=== PATIENT | female | born 1940 | race Caucasian/White ===

== ENCOUNTER 2016-06-02 13:52 | Emergency (ER) | payer MEDICARE, OTHER ==
[~2016-06-02] VITALS: Ht 157.5 cm; Wt 100.9 kg
[~2016-06-02 13:52] MED LIST: GLIP5TAB2 PO; IBUP200C PO; INS7030 SUBQ; MULT1CAP33 PO
[2016-06-02 13:58] VITALS: BP 176/76; PULSE 79; RESP 10; O2SAT 100
--- NOTE | 2016-06-02 15:09 | ED.REPORT ---
HPI-Back Pain 40 and Over Date of Service Jun 02, 2016 ED Provider: Dr. Bobo Astudillo M.D. 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 The pain is exacerbated by laying flat and movement but relieved by sitting up. The patient also reports insomnia, muscles spasms in her legs, and generalized muscle cramping. She is incontinent at baseline but denies any changes in this. She also denies fever, leg numbness/weakness, or other symptoms. The patient was seen by her PCP two days ago where she received x- rays of the lumbar spine indicating anterolisthesis from L4-5 and decreased disc space from L5-S1. No fracture or tumor was visualized. She was given a prescription for prednisone and has been taking oxycodone, with no relief. Nursing Notes Stated Complaint: BACK PAIN Chief Complaint: Back Pain or Injury Nursing Notes Reviewed: Yes Allergies: Coded Allergies: Nitrofurantoin Macrocrystal (Verified Allergy, Intermediate, Rash, 08/15/12) Penicillins (Verified Allergy, Intermediate, Hives, 08/15/12) Sulfa (Sulfonamide Antibiotics) (Verified Allergy, Intermediate, rash, 08/15) aluminum hydroxide (Verified Allergy, Intermediate, rash, 08/15/12) magnesium hydroxide (Verified Allergy, Intermediate, rash, 08/15/12) simethicone (Verified Allergy, Intermediate, rash, 08/15/12) Scheduled Glipizide (Glucotrol) 5 Mg Tablet 2.5 MG PO DAILY Insulin Human Isophan/Regular (HUMulin 70/30 U100 Insulin Vial) 100 Unit/Ml Ml 0 SUBQ DAILY slidig scale Multivitamin (Multivitamins) 1 Each Capsule 1 EACH PO DAILY Scheduled PRN Cyclobenzaprine (Cyclobenzaprine) 10 Mg Tablet 10 MG PO TID PRN PRN Spasm Ibuprofen (Ibuprofen) 200 Mg Capsule 200 MG PO QID PRN PRN For Pain General Time Seen by MD: 15:08 Chief Complaint Lumbar pain Hx Obtained From: Patient Arrived By: Walk-in Sudden in Onset?: Yes Onset Occurred: 1 week ago Symptom Duration: Since onset Caused by: Bending Location: : Spinal lumbar area Quality: Painful Severity: Current: Moderate Severity: Maximum: Moderate Associated with: Denies: Fever, Numbness both low ext, Weakness both lower ext Exacerbated by: Movement Related History: Reports: Cancer Recent Healthcare: Recent doctor visit Similar Sx Previous: Yes Past Medical History Past Medical History Diabetes mellitus FIGO stage I endometrial cancer post resection at [facility] in June 2014 Tricuspid regurgitation Peripheral vascular disease Hypertension Hyperlipidemia 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 Reports: Obesity Past Surgical History Endometrial cancer post resection at [facility] in June 2014 Smoking History Unknown if Ever Smoker Social History Alcohol Use: Denies alcohol use Drug Use: Denies drug use Other Social History: Lives with children Ambulatory Status Independent Review of Systems Review of Systems Note: + Muscles spasms in bilateral legs, generalized muscle cramping - Incontinent at baseline Constitutional: Denies: Fever Respiratory: Denies: Non-productive cough, Shortness of breath GI: Denies: Diarrhea, Vomiting Musculoskeletal: Reports: Back pain (Low) Neurologic: Denies: Numbness, Weakness Complete sys rev & neg: except as marked. Psychiatric: Reports: Insomnia Physical Exam Physical Exam Notes: Initial Vital Signs Vital Signs (First) Date Time Temp Pulse Resp B/P Pulse Ox O2 Delivery O2 Flow Rate FiO2 06/02/16 13:58 36.6 79 10 176/76 100 06/02/16 16:08 Room Air Initial VS: Reviewed Head / Eyes: Atraumatic, Normocephalic ENT: Conjunctiva normal, No scleral icterus Skin: Warm, Dry, No cyanosis Psychiatric: Mood/affect normal, Behavior normal, Normal thought content General/Constitutional: Awake, Alert Respiratory / Chest: Breath sounds NL, Breath sounds = bilat, No respiratory distress Cardiovascular: Heart rate NL, Regular rhythm, Heart sounds NL Abdomen: Soft, Non-tender Back: Atraumatic, Inspection NL, Non-tender Neurologic: Oriented X3, Speech NL, No motor deficits, No sensory deficits Dorsiflexion and plantarflexion 5/5 strength bilaterally Neck: Supple, Full range of motion Re-Eval/Medical Decision Source of Hx: Old records Re-Evaluation/Progress : Time of Eval: 15:30 Patient Status: Condition improved Re-Evaluation/Progress Note: Discussed with patient physical exam findings, diagnosis, and plan for discharge. Follow-up and return to the ER instructions given. Patient agrees with plan for care and all questions were addressed. Counseled Regarding: Diagnosis, Need for follow-up, When/why to return to ED Discharge & Departure Impression: Primary Impression: Lumbosacral strain Encounter type: subsequent encounter Qualified Code: S39.012D - Strain of muscle, fascia and tendon of lower back, subsequent encounter Disposition: Home Discharge Condition All VS Reviewed: Yes Condition: Improved Patient Instructions: Low Back Strain (ED) Additional Instructions: Thank you for entrusting us with your care. Please take Cyclobenzaprine as prescribed. If this does not relieve your symptoms, you may add Oxycodone (1 tablet) as prescribed. Do not drink alcohol, drive, or consume acetaminophen while taking Oxycodone. Continue taking the prescribed Prednisone until it is complete. Then, take Advil as directed for pain. Do not take Advil while you are taking Prednisone. Call your primary care provider tomorrow for another follow-up appointment next week. Follow-up right away for increasing incontinence or lower extremity weakness or fever Return to the ER with any new or worsening symptoms. Referrals: Christie Ceja MD (PCP) John Attestation Portions of this note were transcribed by Marline Lisa. I, Dr. Astudillo, personally performed the history, physical exam, and medical decision-making; I reviewed and confirmed the accuracy of the information in the transcribed note. Signed by: John Sorto, 06/02/2016, 16:35 copies to: Christie Ceja MD, Kirk H MD Jun 02, 2016 15:09 MARLINE LISA Jun 02, 2016 15:22
[2016-06-02] MEDS ORDERED: CYCL10TA9 PO (15:39)
[2016-06-02 16:08] VITALS: BP 145/60; PULSE 70; RESP 16; O2SAT 96
[2016-07-05] MEDS ORDERED: OXYC5CAP4 PO (11:32)
[2016-07-05] MEDS ORDERED: IBUP200C11 PO (11:32)
[2016-07-23] MEDS ORDERED: ACET-2561 PO (08:51)
[2016-07-23] MEDS ORDERED: DOCU240C41 PO (08:51)
[2016-08-21] MEDS ORDERED: CHOL200047 PO (16:01)
[2016-08-21] MEDS ORDERED: BISA-67 PO (16:01)
[2016-08-21] MEDS ORDERED: CA C1TAB83 PO (16:01)
== END 2016-06-02 16:10 | disposition home or self-care (01) ==
LOC: SED 13:52
DX: S39.012D Strain of muscle, fascia and tendon of lower back, subsequent encounter (principal); X50.0XXD Overexertion from strenuous movement or load, subsequent encounter; Y93.89 Activity, other specified; Y92.89 Other specified places as the place of occurrence of the external cause; Y99.8 Other external cause status; I10 Essential (primary) hypertension; E78.5 Hyperlipidemia, unspecified; E11.9 Type 2 diabetes mellitus without complications; Z79.4 Long term (current) use of insulin; Z88.0 Allergy status to penicillin; Z88.2 Allergy status to sulfonamides; Z88.8 Allergy status to other drugs, medicaments and biological substances